=== PATIENT | male | born 1975 | race Caucasian/White ===

== ENCOUNTER → 2016-08-18 | Outpatient (CLI) | payer OTHER ==
--- NOTE | 2016-08-18 16:13 | DX ---
PA and Lateral Chest X-ray 1513 hours History: Atypical left upper chest pain. Comparison to prior study from May 01, 2015. Findings: Heart size and pulmonary vasculature are normal. The lungs are clear without infiltrates or effusions. There is no pneumothorax. The osseous structures are intact. Impression: Normal chest x-ray.
== END ==
LOC: BMCIMAGING 15:15
PROVIDERS: ATTEND Internal Medicine
DX: R07.9 Chest pain, unspecified (principal)

== ENCOUNTER 2018-11-06 03:33 | Emergency (ER) | payer OTHER ==
--- NOTE | 2018-11-06 04:12 | EDPHY ---
H & P Stated Complaint: [facility] fall @0230, [place], head lac Time Seen by Provider: 11/06/18 04:04 HPI/ROS: Chief Complaint: Fall, head laceration HPI: 43-year-old male had a mechanical is morning when got up to go the bathroom, tripped over the dog and struck his head on the dresser. Patient denies loss conscious, did stain the laceration. Denies headache, no neck pain. No numbness or tingling. Patient does admit to some alcoholic drinks prior to bed. Denies any injuries. tetanus is up-to-date ROS: 10 systems were reviewed and were negative except those elements noted in the HPI. PMH: Denies Social History: No smoking, no alcohol, no recreational drug use Family History: non-contributory Physical Exam: Gen: Awake, Alert, Airway Intact HEENT: Ear: 1 cm laceration in the inferior aspect of his ear lobe. Not through the cartilage. Head: Patient has a 3 cm linear laceration in left parietal region. No bony step-offs or crepitus. No Galea involvement. Eyes: PERRLA, EOMI Nose: No epistaxis Mouth: Normal dentition, Airway patent Face: No deformity Neck: non-tender, no stepoff, Full ROM without pain Chest: non-tender, lungs CTA Heart: normal heart tones Abd: soft, non-tender, atraumatic Pelvis: non-tender, stable to AP and Lateral compression Back: atraumatic, no midline tenderness Ext: atramatic, full ROM Skin: no rash Neuro: CN II-XII intact, Strength 5/5 in all extremities, sensation intact in all extremities - Personal History Current Tetanus/Diphtheria Vaccine: Yes - Medical/Surgical History Hx Asthma: No Hx Chronic Respiratory Disease: No Hx Diabetes: No Hx Cardiac Disease: No Hx Renal Disease: No Hx Cirrhosis: No Hx Alcoholism: No Hx HIV/AIDS: No Hx Splenectomy or Spleen Trauma: No Other PMH: denies - Social History Smoking Status: Never smoked Constitutional: Initial Vital Signs Temperature (C) 36.5 C 11/06/18 03:35 Heart Rate 79 11/06/18 03:35 Respiratory Rate 16 11/06/18 03:35 Blood Pressure 123/84 H 11/06/18 03:35 O2 Sat (%) 96 11/06/18 03:35 O2 Delivery Mode Room Air Allergies/Adverse Reactions: tetracycline [Tetracycline] Allergy (Severe, Verified 11/06/18 03:36) Home Medications: Medication Instructions Recorded [facility] 12/22/09 Medical Decision Making Procedures: Procedure: Scalp Laceration repair. Verbal consent was obtained from the patient. The 3 cm laceration on the left parietal scalp was anesthetized in the usual fashion. The wound was irrigated, draped and explored to its base with a gloved finger. There were no deep structures involved. No tendon injury was identified. The wound was repaired with 6 kathi. The wound repair was uncomplicated. The procedure was performed by myself. Procedure: Ear Laceration repair. Verbal consent was obtained from the patient. The 1 cm laceration on the left ear was anesthetized in the usual fashion. The wound was irrigated, draped and explored to its base with a gloved finger. There were no deep structures involved. No tendon injury was identified. The wound was repaired with 3, 5-0 Ethilon simple interrupted sutures. The wound repair was uncomplicated. The procedure was performed by myself. Departure - Departure Disposition: Home, Routine, Self-Care Clinical Impression: Scalp laceration, Ear lobe laceration Condition: Good Instructions: Care For Your Stitches (ED), Laceration (ED), Staple Care (ED) Additional Instructions: Your ear sutures need to be removed in 5 days, you remain turn to the emergency department we will remove them for you. Kathi need to be removed in 7 days. You may return to the emergency department and we will remove them for you. Return sooner for increasing pain, redness, discharge from the wound, worsening headache, vomiting, confusion, or any other concerns. Referrals: Iliana Melendez MD [Primary Care Provider] - As per Instructions
[2018-11-13 10:28] VITALS: BP 115/67
== END 2018-11-06 05:15 | disposition home or self-care (01) ==
PROC: 0HQ3XZZ Repair Left Ear Skin, External Approach (ICD-10-PCS; principal; 2018-11-06)
PROC: 0HQ0XZZ Repair Scalp Skin, External Approach (ICD-10-PCS; principal; 2018-11-06)
DX: S01.01XA Laceration without foreign body of scalp, initial encounter (principal); S01.312A Laceration without foreign body of left ear, initial encounter; W01.190A Fall on same level from slipping, tripping and stumbling with subsequent striking against furniture, initial encounter; Y92.003 Bedroom of unspecified non-institutional (private) residence as the place of occurrence of the external cause; Y99.9 Unspecified external cause status